=== PATIENT | female | born 1955 | race Caucasian/White ===

== ENCOUNTER 2016-09-05 17:12 | Emergency (ER) | payer OTHER ==
[2016-09-05 17:49] VITALS: BP 137/84
[2016-09-05] MEDS ORDERED: Ondansetron ODT TAB* 4 MG PO ONE (18:20)
--- NOTE | 2016-09-05 18:20 | UC ---
Headache HPI - HPI Summary HPI Summary: complaint of headache that started today 2:00 feels like her normal migrine headache pain is a constant aching throbbing pain behind her left eye took some ibuprofen at 3:00 PM and now feels under control had a bout of vomiting and diarrhea today with headache which is normal for her rash on her lower leg that she noticed yesterday rash is slightly itchy was in a area and they were covered with ticks denies fever and chills - History Of Current Complaint Chief Complaint: [place] Stated Complaint: RASH AND HEADACHE Time Seen by Provider: 09/05/16 18:10 Hx Obtained From: Patient - Allergies/Home Medications Allergies/Adverse Reactions: Allergies Allergy/AdvReac Type Severity Reaction Status Date / Time Codeine Allergy Severe DIZZY, Verified 09/05/16 17:49 SYNCOPE MUSCLE RELAXERS Allergy Severe DIZZY, Uncoded 01/13/16 10:30 SYNCOPE PMH/Surg Hx/FS Hx/Imm Hx Previously Healthy: Yes - Surgical History Surgical History: Yes Surgery Procedure, Year, and Place: FX RIGHT ARM - ORIF WITH PLATE/SCREWS 2014. COLONOSCOPY - Family History Known Family History: Negative: Cardiac Disease, Hypertension, Diabetes - Social History Occupation: Employed Full-time Lives: With Family Alcohol Use: Occasionally Substance Use Type: None Smoking Status (MU): Never Smoked Tobacco Have You Smoked in the Last Year: No - Immunization History Most Recent Influenza Vaccination: couple years ago Most Recent Tetanus Shot: up to date Most Recent Pneumonia Vaccination: never Review of Systems Constitutional: Negative Skin: Rash Eyes: Negative ENT: Negative Respiratory: Negative Cardiovascular: Negative Gastrointestinal: Negative Motor: Negative Neurovascular: Negative Musculoskeletal: Negative Neurological: Headache Psychological: Negative All Other Systems Reviewed And Are Negative: Yes Physical Exam Triage Information Reviewed: Yes Appearance: No Pain Distress, Well-Nourished Vital Signs: Initial Vital Signs Temp 99.6 F 09/05/16 17:45 Pulse 93 09/05/16 17:45 Resp 16 09/05/16 17:45 BP 137/84 09/05/16 17:45 Pulse Ox 100 09/05/16 17:45 Vital Signs Reviewed: Yes Eyes: Positive: Conjunctiva Clear ENT: Positive: Pharynx normal Neck: Positive: No Lymphadenopathy Respiratory: Positive: Lungs clear, Normal breath sounds, No respiratory distress, No accessory muscle use Cardiovascular: Positive: RRR, No Murmur, Pulses Normal, Brisk Capillary Refill Abdomen Description: Positive: Nontender, Soft Bowel Sounds: Positive: Present Musculoskeletal: Positive: No Edema Neurological: Positive: Alert, Other: - [id number] normal, negative [place]berg Psychological Exam: Normal Skin: Positive: Other - LLE- [id number] area of erythema sourrounding 2 bites sites Headache Course/Dx - Course Course Of Treatment: exam completed. pt states that she feels like she has her normal migraine- no red flags to warrant imaging. will give doxycycline as prophylactic diasage for possible tick bite - Differential Dx/Diagnosis Differential Diagnosis/HQI/PQRI: Migraine Provider Diagnoses: insect bite, migraine Discharge - Discharge Plan Condition: Stable Disposition: HOME Prescriptions: DOXYcycline CAP(*) [DOXYcycline 100MG CAP(*)] 100 mg PO DAILY #2 cap Patient Education Materials: Migraine Headache (ED), Tick Bite (ED), Insect Bite or Sting (ED) Referrals: Antelmo Evans MD [Primary Care Provider] - Tereso Carroll MD [Medical Doctor] - Additional Instructions: Please start antibiotic as directed Increase fluids and rest Take excedrin and zofran as needed for headache and nausea Please make followup appt with your primarycare porovider or neurologist regarding your chronic headaches Please review your discharge instructions. If your symptoms do not improve please call your primary care provider or return to urgent care.
== END 2016-09-05 19:00 | disposition home or self-care (01) ==
LOC: UCEAST 17:12
DX: G43.909 Migraine, unspecified, not intractable, without status migrainosus (principal); S80.862A Insect bite (nonvenomous), left lower leg, initial encounter; W57.XXXA Bitten or stung by nonvenomous insect and other nonvenomous arthropods, initial encounter; Y93.9 Activity, unspecified; Y92.9 Unspecified place or not applicable; Z88.5 Allergy status to narcotic agent
CPT/HCPCS: 99212; A9270-GY; G0463

== ENCOUNTER 2019-04-18 17:18 | Emergency (ER) | payer OTHER ==
--- NOTE | 2019-04-18 17:22 | UC ---
Head Injury HPI - HPI Summary HPI Summary: 63 yo female presents, accompanied by , s/p fall. She tells me that about 20min [employer] she was walking on [place] [address] and slipped in the mud - landed on her right knee and hit her chin in the mud - sustained a small laceration to her chin. No LOC. Bandaged the area and came directly to . Unsure date of last tetanus. Currently has pain only at the lac site. - History Of Current Complaint Stated Complaint: FACIAL INJURY Time Seen by Provider: 04/18/19 17:21 Hx Obtained From: Patient Onset/Duration: Sudden Onset Severity Currently: Mild Severity Initially: Mild Pain Intensity: 3 Pain Scale Used: 0-10 Numeric - Allergies/Home Medications Allergies/Adverse Reactions: Allergies Allergy/AdvReac Type Severity Reaction Status Date / Time codeine Allergy Dizziness, Verified 04/18/19 17:56 syncope MUSCLE RELAXERS Allergy Severe DIZZY, Uncoded 01/13/16 10:30 SYNCOPE PMH/Surg Hx/FS Hx/Imm Hx Endocrine History: Dyslipidemia - Surgical History Surgical History: Yes Surgery Procedure, Year, and Place: FX RIGHT ARM - ORIF WITH PLATE/SCREWS 2014. COLONOSCOPY - Family History Known Family History: Negative: Cardiac Disease, Hypertension, Diabetes - Social History Occupation: Employed Full-time Lives: With Family Alcohol Use: Occasionally Substance Use Type: None Smoking Status (MU): Never Smoked Tobacco Have You Smoked in the Last Year: No - Immunization History Most Recent Influenza Vaccination: couple years ago Most Recent Tetanus Shot: up to date Most Recent Pneumonia Vaccination: never Review of Systems All Other Systems Reviewed And Are Negative: No Constitutional: Positive: Negative Skin: Positive: Other - laceration chin Respiratory: Positive: Negative Cardiovascular: Positive: Negative Neurovascular: Positive: Negative Musculoskeletal: Positive: Negative Neurological: Positive: Negative Psychological: Positive: Negative Physical Exam - Summary Physical Exam Summary: GENERAL: NAD. WDWN. No pain distress. SKIN: RIGHT KNEE: anterior knee with very superficial abrasion. CHIN: 6mm crescent shaped partial thickness laceration. Clean appearing. Mild active bleeding. HEENT: Head: No raccoon eyes or battles sign. Eyes: PERRLA. EOM intact. Conjunctiva clear without inflammation or discharge. Ears: Hearing grossly normal. TMs intact, no bulging, erythema, or edema. No hemotympanum Nose: Nasal mucosa pink and moist. NTTP maxillary and frontal sinus. Throat: Posterior oropharynx without exudates, erythema, or tonsillar enlargement. Uvula midline. DENTAL: No dental fx. NECK: Supple. Nontender. FROM CHEST: CTAB. No r/r/w. No accessory muscle use. Breathing comfortably and in no distress. CV: RRR. Pulses intact. Brisk cap refill. MSK: FROM in B/L UEs and LEs with symmetric strength. OPENS AND CLOSES JAW WITHOUT PAIN. NTTP TMJ NEURO: A&Ox3. CN: II: Peripheral little intact. Vision normal. III, IV, : EOMI. No nystagmus. PERRLA. V: Sensations intact and symmetric. Opens mouth and clenches teeth. VII: No facial asymmetry. Forehead wrinkles. Grins, shuts eyes, frowns, puffs cheeks. VIII: Hearing intact to finger rub. IX, X: Swallows and coughs. Uvula midline. XI: Shrugs shoulders. Turns head against resistance. XII : No tongue deviation [id number] are intact. Gait with normal base. Romberg : maintains balance, no pronator drift. Normal speech. No facial drooping. PSYCH: Age appropriate behavior. Triage Information Reviewed: Yes Vital Signs: Vital Signs: Temp Pulse Resp BP Pulse Ox 97.9 F 79 18 129/82 99 04/18/19 17:48 04/18/19 17:48 04/18/19 17:48 04/18/19 17:48 04/18/19 17:48 Calcium 1 tab PO DAILY 08/27/15 [History Confirmed 09/05/16] Ibuprofen TAB* [Advil TAB*] 2 tab PO PRN 08/27/15 [History Confirmed 01/20/16] Atorvastatin* 1 tab PO DAILY 01/13/16 [History Confirmed 09/05/16] DOXYcycline CAP(*) [DOXYcycline 100MG CAP(*)] 100 mg PO DAILY #2 cap 09/05/16 [ Rx] Vital Signs Reviewed: Yes Head Injury Course/Dx - Course Course Of Treatment: Wound irrigated with 100mL NS. Recommended sutures, but pt states she does not care about scarring and prefers dermabond today. Neuro exam WNL, no headache, no LOC. Discussed CT imaging of brain and maxiofacial today, but pt declined. Dermabond applied and brought into good approximation. Band-aid applied. - Differential Dx/Diagnosis Provider Diagnosis: Head injury, Fall, Chin laceration Discharge ED - Sign-Out/Discharge Documenting (check all that apply): Patient Departure All imaging exams completed and their final reports reviewed: No Studies - Discharge Plan Condition: Stable Disposition: HOME Patient Education Materials: Head Injury (ED), Skin Adhesive Care (ED) Referrals: Marcie Asif MD [Primary Care Provider] - Additional Instructions: If you develop a fever, shortness of breath, chest pain, new or worsening symptoms - please call your PCP or go to the ED immediately. Change the band-aid daily until well healed (likely around 7 days) - Billing Disposition and Condition Condition: STABLE Disposition: Home Laceration - History Of Current Complaint Time Seen by Provider: 04/18/19 17:21 - Allergies/Home Medications Allergies/Adverse Reactions: Allergies Allergy/AdvReac Type Severity Reaction Status Date / Time codeine Allergy Dizziness, Verified 04/18/19 17:56 syncope MUSCLE RELAXERS Allergy Severe DIZZY, Uncoded 01/13/16 10:30 SYNCOPE Laceration Repair - Laceration Repair 1 Description: Irregular - crescent shape Laceration Size After Repair: Length (cm) - 0.6 Modified For Repair: No Irrigation With Pressure Irrigation Device: Yes Closure Material: Skin Adhesive Closure Method: Single Layer Suture Of: Skin
[2019-04-18] MEDS ORDERED: Tetan/Diph/Pertus SYR(Tdap)* 0.5 ML SYR(BOOSTRIX) use SYR contains LATEX IM ONE (17:33)
[2019-04-18] MEDS ORDERED: Ibuprofen TAB* 200 MG PO ONE (17:37)
[2019-04-18 17:49] VITALS: BP 129/82
== END 2019-04-18 18:55 | disposition home or self-care (01) ==
LOC: UCEAST 17:18
DX: S09.90XA Unspecified injury of head, initial encounter (principal); S01.81XA Laceration without foreign body of other part of head, initial encounter; Z88.5 Allergy status to narcotic agent; Z91.09 Other allergy status, other than to drugs and biological substances; W01.0XXA Fall on same level from slipping, tripping and stumbling without subsequent striking against object, initial encounter; Y93.01 Activity, walking, marching and hiking; Y92.9 Unspecified place or not applicable
CPT/HCPCS: 12011; 90715; 99211; A9270-GY; G0463